=== PATIENT | female | born 1950 | race Caucasian/White ===

== ENCOUNTER 2018-10-19 13:44 | Emergency (ER) | payer OTHER, MEDICAID ==
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
[2018-10-19] MEDS ORDERED: NS 1,000 ML IV ONE ×2 (14:48→20:30)
[2018-10-19 16:04] LABS: PLATELET COUNT 256 10^3/uL (150-400)
--- NOTE | 2018-10-19 16:24 | CPEKG ---
Test Reason : OPEN Blood Pressure : / mmHG Vent. Rate : 063 BPM Atrial Rate : 063 BPM P-R Int : 201 ms QRS Dur : 081 ms QT Int : 464 ms P-R-T Axes : 090 065 059 degrees QTc Int : 476 ms Atrial-paced rhythm Consider left ventricular hypertrophy Confirmed by Natali Spence ([id number]) on 10/19/2018 4:23:24 PM Referred By: Natali Spence Confirmed By:Natali Spence
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
[2018-10-19] MEDS ORDERED: ACETAMINOPHEN 500 MG TAB PO ONE (20:55)
[2018-10-19] MEDS ORDERED: ALPRAZolam 0.25 MG TAB PO ONE (22:45)
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
--- NOTE | 2018-10-20 12:46 | ASMTLCPROG ---
Notes Note: Notes: Attempted to re-evaluate this 68 y/o female at 11:45 after reviewing all Case Management Notes including the almost completed TLC evaluation by Doug Garcia. Pt was lying in bed with the lights out, holding a water cup and when asked how she was feeling said "not well, water" I asked her what she meant and she begin recitng names of unknown individuals. Basically she was communicating word salad. I attempted again, at 12:30 to re-evaluate and she was ,uttering and not acknowledging my presence. Awaiting consultation with Dr. Cortez regarding disposition. Planning to check availability of beds available on specialized Geriatric Psych Unit. Date Signed: 10/20/2018 12:46 PM Electronically Signed By:Margot Cardona
--- NOTE | 2018-10-20 13:30 | ASMTLCPROG ---
Notes Note: Notes: Spoke with Dr Cortez who concurred with the recommendation for a Geriatric Psych Placement for this pt. Pt's packet has been sent to [facility] who all have beds available today. Date Signed: 10/20/2018 01:30 PM Electronically Signed By:Margot Cardona
--- NOTE | 2018-10-20 20:42 | ASMTLCPROG ---
Notes Note: Notes: Pt has been declined admission to [facility] and [facility] Both were concerned that pt was suffering from Dementia as opposed to a psychiatric illness. Have left voicemail at [facility] - awaiting word as to acceptance or denial. Date Signed: 10/20/2018 08:41 PM Electronically Signed By:Margot Cardona
[2018-10-20] MEDS ORDERED: amLODIPine BESYLATE 5 MG TAB ONE (22:52)
[2018-10-20] MEDS ORDERED: amLODIPine BESYLATE 5 MG TAB PO ONE (22:53)
[2018-10-20] MEDS ORDERED: ALPRAZolam 0.25 MG TAB PO ONE (22:53)
[2018-10-21] MEDS ORDERED: ALPRAZolam 0.25 MG TAB PO ONE
[2018-10-21] MEDS ORDERED: PANTOPRAZOLE SODIUM 40 MG TAB PO ONE ×2 (04:54→08:53)
--- NOTE | 2018-10-21 05:58 | CPEKG ---
Test Reason : OPEN Blood Pressure : / mmHG Vent. Rate : 071 BPM Atrial Rate : 071 BPM P-R Int : 122 ms QRS Dur : 078 ms QT Int : 512 ms P-R-T Axes : 062 072 065 degrees QTc Int : 557 ms Sinus rhythm Consider left ventricular hypertrophy Prolonged QT interval Confirmed by Minh Florentino ([id number]) on 10/21/2018 5:57:24 AM Referred By: Minh Florentino Confirmed By:Minh Florentino
[2018-10-21] MEDS ORDERED: LEVOTHYROXINE 112 MCG TAB PO SCH (06:00)
[2018-10-21] MEDS ORDERED: OXYCODONE/APAP 5/325 TAB PO ONE (06:05)
[2018-10-21] MEDS ORDERED: METOPROLOL SUCCINATE XR 50 MG TAB PO SCH (09:00)
[2018-10-21] MEDS ORDERED: DEXTROAMPHETAMINE 5 MG TAB PO SCH (09:00)
[2018-10-21] MEDS ORDERED: LOSARTAN POTASSIUM 50 MG TAB PO SCH (09:00)
[2018-10-21] MEDS ORDERED: VENLAFAXINE XR 37.5 MG CAP PO SCH (09:00)
[2018-10-21 10:09] VITALS: BP 123/76
--- NOTE | 2018-10-21 15:22 | ASMTTCLDSP ---
TLC Discharge Disposition Disposition: Answers: Transfer Disposition Notes: Notes: [facility]iffanie-psych placement accepted at [facility] under Henri Albert MD. Discharge Concerns/Recommendations: Notes: In consultation with [facility] ED physician, Patrick Florentino MD and on-call psychiatrist, Shane Cortez MD, both concurred that pt appears to meet 27-65 criteria requiring psychiatric hospitalization as pt appears to be gravely disabled due to a mental illness. Was patient given the Answers: Not applicable Inpatient Behavioral Health Prohibited Belongings List while in the ED? Type of Hold: Answers: M1/72-hour Hold Hold initiated by: Answers: ED Physician For Transfers, Accepting [facility] Facility: For Transfers, Accepting Henri Albert MD Psychiatrist: For Transfers, Reason Tiffanie-psych placement per Dr. Cortez. Patient is Being Transferred: Date Signed: 10/21/2018 03:21 PM Electronically Signed By:Olayinka Carlson
== END 2018-10-21 10:09 ==
DX: F30.9 Manic episode, unspecified (principal); F03.90 Unspecified dementia, unspecified severity, without behavioral disturbance, psychotic disturbance, mood disturbance, and anxiety; E86.9 Volume depletion, unspecified
CPT/HCPCS: 80305; G0480